=== PATIENT | female | born 1960 | race Caucasian/White ===

== ENCOUNTER 2019-10-23 12:48 | Emergency (ER) | payer MEDICARE, MEDICAID ==
[~2019-10-23] VITALS: Ht 177 cm; Wt 109.0 kg
[2019-10-23] MEDS ORDERED: FLUT1DIS26 (13:22)
--- NOTE | 2019-10-23 13:24 | ED Chest Pain ---
General Chief Complaint: Chest Wall Stated Complaint: FALL; SOB Nursing Triage Note: Patient fell on car and hit left side 4 days ago. States it hurts to breathe and is not being controlled by her pain medicine. Nursing Sepsis Screen: No Definite Risk History of Present Illness Date Seen by Provider: Oct 23, 2019 Time Seen by Provider: 12:40 Initial Comments Patient states she was walking in a parking lot yesterday, tripping and losing her balance and falling into the side of a car injuring her left side of her chest. Since then pain with moving her left arm, twisting and turning of her torso as well as taking a deep breath. Denies any bruising of the skin. Denies any fever or shortness of air at rest. No other injury or complaint. Allergies and Home Medications Allergies Coded Allergies: Sulfa (Sulfonamide Antibiotics) (Verified Allergy, Unknown, abdominal pain, 10/23/19) adhesive (Verified Allergy, Unknown, rash, 10/23/19) bupropion (Verified Allergy, Unknown, 10/23/19) butorphanol (Verified Allergy, Unknown, 10/23/19) cefuroxime (Verified Allergy, Unknown, abdominal pain , 10/23/19) cephalexin (Verified Allergy, Unknown, diarrhea, 10/23/19) clindamycin (Verified Allergy, Unknown, 10/23/19) diclofenac (Verified Allergy, Unknown, 10/23/19) escitalopram (Verified Allergy, Unknown, 10/23/19) estrogens, conjugated (Verified Allergy, Unknown, 10/23/19) ibuprofen (Verified Allergy, Unknown, 10/23/19) levofloxacin (Verified Allergy, Unknown, abdominal pain, 10/23/19) milnacipran (Verified Allergy, Unknown, 10/23/19) morphine (Verified Allergy, Unknown, itching, rash , 10/23/19) pramipexole (Verified Allergy, Unknown, abdominal pain , 10/23/19) pregabalin (Verified Allergy, Unknown, 10/23/19) simvastatin (Verified Allergy, Unknown, 10/23/19) sucralfate (Verified Allergy, Unknown, 10/23/19) venlafaxine (Verified Allergy, Unknown, 10/23/19) Home Medications Hydrocodone/Acetaminophen 1 Each Tablet, 1 EACH PO Q6H Prescribed by: STEPHANY DAMON on 10/23/19 1345 Patient Home Medication List Home Medication List Reviewed: Yes Review of Systems Review of Systems Constitutional: no symptoms reported Respiratory: See HPI; Denies Cough, Denies Orthopnea, Denies Shortness of Air, Denies SOA With Exertion, Denies SOA at Rest Cardiovascular: See HPI, Chest Pain (left lateral chest wall) Gastrointestinal: Denies Abdominal Pain, Denies Vomiting Musculoskeletal: No back pain, No joint pain Skin: No change in color, No lesions, No rash Psychiatric/Neurological: Denies Numbness, Denies Paresthesia Past Thbckgc-Iffipd-Svmoch Hx Past Med/Social Hx: Reviewed Nursing Past Med/Soc Hx Patient Social History Alcohol Use: Denies Use Recreational Drug Use: No Smoking Status: Never a Smoker 2nd Hand Smoke Exposure: No Recent Foreign Travel: No Contact w/Someone Who Travel: No Recent Infectious Disease Expo: No Recent Hopitalizations: No Seasonal Allergies Seasonal Allergies: No Past Medical History Surgeries: Yes (eye; knee) Gallbladder, Orthopedic, Tonsillectomy Respiratory: Yes Asthma Cardiac: No Neurological: No Genitourinary: No Gastrointestinal: No Musculoskeletal: No Endocrine: No HEENT: No Cancer: No Psychosocial: No Blood Disorders: No Adverse Reaction/Blood Tranf: No Physical Exam Vital Signs Vital Signs - First Documented 10/23/19 13:17 Temp 37.1 Pulse 87 Resp 16 B/P (MAP) 118/77 (91) Pulse Ox 98 Capillary Refill : Less Than 3 Seconds Height, Weight, BMI Height: '" Weight: lbs. oz. kg; 34.00 BMI Method: General Appearance: No Apparent Distress, WD/WN Respiratory: Chest Non Tender, Lungs Clear, Normal Breath Sounds, No Accessory Muscle Use, No Respiratory Distress, Other (generalized tenderness left lateral chest wall without localization of bony pain) Cardiovascular: Regular Rate, Rhythm, No Edema, No Gallop, No JVD, No Murmur, Normal Peripheral Pulses Gastrointestinal: Non Tender, Soft Extremity: Normal Capillary Refill, Normal Inspection Neurologic/Psychiatric: Alert, Oriented x3, No Motor/Sensory Deficits Skin: Normal Color, Warm/Dry; No Ecchymosis, No Rash Progress/Results/Core Measures Results/Orders My Orders Orders - ROVENSTINESTEPHANY DO Chest Pa/Lat (2 View) (10/23/19 12:49) Vital Signs/I&O 10/23/19 10/23/19 13:17 13:58 Temp 37.1 Pulse 87 81 Resp 16 18 B/P (MAP) 118/77 (91) 129/74 Pulse Ox 98 98 Blood Pressure Mean: 91 Diagnostic Imaging Comments Date of Exam:10/23/19 CHEST PA/LAT (2 VIEW) INDICATION: Fall and shortness of breath. TIME OF EXAM: 1:05 PM Correlation is made with prior chest from 02/20/2015. The heart size is stable. No parenchymal consolidation is seen. There are some mild interstitial prominence in lung bases. No effusion or pneumothorax is seen. IMPRESSION: Mild bibasilar interstitial prominence. Study is otherwise unremarkable. Dictated on workstation # [id number] Dict: 10/23/19 1313 Trans: 10/23/19 1325 CV [id number] Interpreted by: RAZIA PRATT MD Electronically signed by: Departure Impression Primary Impression: Rib pain Additional Impression: Contusion of chest wall Qualified Codes: S20.212A - Contusion of left front wall of thorax, initial encounter Disposition: HOME, SELF-CARE Condition: Stable Departure-Patient Inst. Decision time for Depature: 13:44 Referrals: CARLITOS ORTA DO (PCP/Family) Primary Care Physician Patient Instructions: Bruised Rib (DC) Scripts Hydrocodone/Acetaminophen (Hydrocodone-Acetamin 5-325 mg) 1 Each Tablet 1 EACH PO Q6H for Pain, #20 TAB Prov: STEPHANY DAMON DO 10/23/19 STEPHANY DAMON DO Oct 23, 2019 13:24
--- OUTSIDE RECORDS SUMMARY | 2019-10-23 13:39 | XMS REPORT | Clinical Summary ---
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 If you d o not see the information that you expected, contact Release of Information in [facility] Information Management department at [phone] for further assistan ce in locating additional records.[facility] Allergies Comments Active Allergy Reactions Severity Noted Date Adhesive Tape (Rosins) RASH 06/11/2010 Sucralfate NAUSEA AND 06/11/2010 VOMITING Cefuroxime Axetil NAUSEA AND 06/11/2010 VOMITING Diclofenac NAUSEA AND Low 12/30/2017 VOMITING Doxycycline STOMACH UPSET Low 12/30/2017 Venlafaxine FLATULENCE 06/11/2010 Ibuprofen NAUSEA AND 06/11/2010 VOMITING Escitalopram NAUSEA AND 06/11/2010 VOMITING Pramipexole HALLUCINATION 06/11/2010 S Prednisone NAUSEA AND 06/11/2010 VOMITING Quinine NAUSEA AND 06/11/2010 VOMITING Sulfa (Sulfonamide NAUSEA AND 04/17/2011 Antibiotics) VOMITING Ketorolac Tromethamine SWEATING 06/11/2010 shaking Bupropion Hcl SEE COMMENTS 06/11/2010 Medications End Date Status Medication Sig Dispensed Refills Start Date Active fluticasone/salmeterol Inhale 1 Puff 0 (ADVAIR) 250/50 mcg IN by mouth inhalation disk every [address]. [address] (CYMBALTA) Take 60 mg by 0 60 mg PO capsule mouth Daily. Active dicyclomine (BENTYL) 20 Take 20 mg by 0 mg PO tablet mouth four times daily as needed. Abdominal cramps Active hydrOXYzine (ATARAX) 25 Take 25-50 mg 0 mg PO tablet by mouth every 6 hours as needed. itching Active nystatin (MYCOSTATIN) Apply to 0 100,000 unit/g TP topical affected area cream Twice Daily. Active albuterol (VENTOLIN HFA, Inhale 2 0 PROAIR HFA) 90 Puffs by mcg/Actuation IN inhaler mouth every 4 hours as needed. Cough/wheezin g Active sertraline (ZOLOFT) 100 Take 150 mg 0 mg PO tablet by mouth daily. Active montelukast (SINGULAIR) Take 10 mg by 0 10 mg PO tablet mouth At Bedtime Daily. Active aspirin EC 81 mg PO Take 81 mg by 0 tablet mouth at bedtime daily. Active vitamins, multiple PO Cap Take 1 Cap by 0 mouth Daily. Active traMADol (ULTRAM) 50 mg Take 50-100 0 tablet mg by mouth every 6 hours as needed. Active cyclobenzaprine Take 10 mg by 0 (FLEXERIL) 10 mg tablet mouth four times daily as needed. Muscle spasms Active Sodium Chloride-Aloe Vera Insert into 0 (AYR SALINE GEL) Swab nose as directed. Use at night with oxygen Active ranitidine(+) (ZANTAC) Take 300 mg 0 300 mg tablet by mouth at bedtime daily. Active diclofenac(+) (VOLTAREN) Apply 2 g to 0 1 % Gel topical gel affected area twice daily. Active levothyroxine (SYNTHROID) Take 25 mcg 0 25 mcg tablet by mouth daily. Active oxybutynin XL (DITROPAN Take 10 mg by 0 XL) 10 mg tablet mouth at bedtime daily. Active estradiol (ESTRACE) 1 mg Take 1 mg by 0 tablet mouth daily. For 24 days followed by provera 5 mg tablet for 4 days Active promethazine/codeine Take 5-10 mL 0 (PHENERGAN W/CODEINE) by mouth 6.25/10 mg/5 mL oral every 4-6 syrup hours as needed. Active LORazepam (ATIVAN) 1 mg Take 1 mg by 0 tablet mouth every 4 hours as needed. Active DOCOSAHEXANOIC ACID/EPA Take 1,000 mg 0 (FISH OIL PO) by mouth at bedtime daily. Active albuterol-ipratropium Inhale 3 mL 0 (DUONEB) 0.5 mg-3 mg(2.5 solution as mg base)/3 mL nebulizer directed solution every 4 hours as needed. Cough/wheezin g Active Cyanocobalamin 50 mcg Tab Take 1 Tab by 0 mouth daily. Active Rrqnfapf-Kptef-Zlc Take 2 Tabs 0 149-Hyal Ac by mouth (GLUCOSAMINE-CHONDROITIN) daily. 750 mg-100 mg- 125 mg-1.65 mg Tab Active calcium carbonate-vitamin Take 1 Cap by 0 D3 600 mg(1,500mg) -100 mouth twice unit cap daily. Active fluticasone (FLONASE) 50 Apply 1 [place] 0 mcg/actuation nasal spray to each nostril as directed daily. Active docusate (COLACE) 100 mg Take 1 Cap by 60 Cap 0 capsule mouth twice 3 daily. Active polyethylene glycol 3350 Take 17 g by 0 12/18 (GLYCOLAX; MIRALAX) 17 mouth twice 3 gram/dose powder daily. Active senna (SENOKOT) 8.6 mg Take 2 Tabs 90 Tab 1 tablet by mouth 3 twice daily. Active Lactobacillus acidophilus Take by 0 (ACIDOPHILUS PO) mouth. Active Garlic 1,000 mg cap Take by 0 mouth. Active amoxicillin (AMOXIL) 875 Take 875 mg 0 mg tablet by mouth daily. Active Problems Problem Noted Date Hypothyroidism, unspecified 11/13/2014 Discoloration of skin of finger 10/08/2014 Fibromyalgia 10/08/2014 Fatigue 10/08/2014 JENNIFER (obstructive sleep apnea) 10/08/2014 Depression with anxiety 10/08/2014 Environmental allergies 10/08/2014 GERD (gastroesophageal reflux disease) 03/01/2012 IBS (irritable bowel syndrome) 03/01/2012 Family History Medical History Relation Name Comments Bipolar Disorder Brother Irritable Bowel Disease Brother Arthritis Father Irritable Bowel Disease Father Melanoma Father Cancer Maternal Grandfather Cancer Maternal Grandmother Cancer Sister pancreas Hypertension Sister Irritable Bowel Disease Sister Relation Name Status Comments Brother Father Maternal Grandfather Maternal Grandmother Sister Social History Date Tobacco Use Types Packs/Day Years Used Never Smoker Smokeless Tobacco: Never Used Drinks/Week oz/Week Comments Alcohol Use No Sex Assigned at Date Recorded Not on file Industry Job Start Date Occupation Not on file Not on file Not on file Travel End Travel History Travel Start No recent travel history available. Last Filed Vital Signs Reading Time Taken Comments Vital Sign 110/64 12/30/2017 1:23 PM CDT Blood Pressure 84 12/30/2017 1:23 PM CDT Pulse 36.8 C (98.3 F) 12/30/2017 1:23 PM CDT Temperature 19 11/13/2014 11:05 AM CDT Respiratory Rate 97% 12/18/2012 11:50 AM CDT Oxygen Saturation - - Inhaled Oxygen Concentration 95.3 kg (210 lb) 12/30/2017 1:23 PM CDT Weight 152.4 cm (5') 12/30/2017 1:23 PM CDT Height 41.01 12/30/2017 1:23 PM CDT Body Mass Index Plan of Treatment Health Maintenance Due Date Last Done Comments MEDICARE ANNUAL WELLNESS 1958 VISIT DTAP/TDAP VACCINES (1 - 1969 Tdap) HIV SCREENING 1973 PHYSICAL (COMPREHENSIVE) 1976 EXAM CERVICAL CANCER SCREENING 1979 BREAST CANCER SCREENING 1998 SHINGLES RECOMBINANT 2008 VACCINE (1 of 2) INFLUENZA VACCINE 02/23/2019 06/14/2006, 07/06/2005 COLORECTAL CANCER 04/17/2021 04/17/2011 SCREENING HEPATITIS C SCREENING Completed 12/30/2017, 03/23/2013 Results Not on filefrom Last 3 Months Insurance Type Payer Benefit Subscriber ID Effective Phone Address Plan / Dates Group Medicare MEDICARE MEDICARE xxxxxxxxxxx 2005-P PART A AND resent B Medicaid [place] [employer] xxxxxxxxxxx 2012- STATE [facility]/HO xxxxxxxxx 12/24/2017- P [place] HE[place]/SNF /FDC 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
--- OUTSIDE RECORDS SUMMARY | 2019-10-23 13:39 | XMS REPORT ---
Author Author [facility] Organization [facility] Address [address] [address] Care Team Providers Care Cancer Program Coordinator Name Role Phone Ross Silva Unavailable Unavailable Allergies No Information Medications No Information Problems No Information Procedures No Information Immunizations No Information Results No Information Vital Signs No Information Interventions No Information Plan of Treatment No Information Goals No Information Social History No Information Functional Status No Information Mental Status No Information Encounters Encounter Normalized Encounter Encounter Diagnosis Care Provi kelsie Organization Date Type 04-12-2019 Patient encounter no information no name (no phone) no organization name procedure (no phone) Medical Equipment No Information Payers No Information Additional Source Comments This clinical document has been generated using [employer] software that has been certified by the Office of the National Coordinator for Health Information Technology (ONC 15.99.04.3023.Diam.[id number]) and the National Committee for Senior Javascript Engineer (NCQA, as an eMeasure certified technology). FOR RECORDS PERTAINING TO PATIENTS WHO ARE OR HAVE BEEN ENROLLED IN A CHEMICAL D EPENDENCY/SUBSTANCE ABUSE PROGRAM, SOME INFORMATION MAY BE OMITTED. This clinica l summary was aggregated from multiple sources. Caution should be exercised in using it in the provision of clinical care. This summary normalizes information from multiple sources, and as a consequence, information in this document may ma terially change the coding, format and clinical context of patient data. In roscoe tion, data may be omitted in some cases. CLINICAL DECISIONS SHOULD BE BASED ON T HE PRIMARY CLINICAL RECORDS. [facility] provides no warranty or guara ntee of the accuracy or completeness of information in this document.The followi ng information is based on time limited clinical information
[2019-10-23] MEDS ORDERED: HYDR-83 PO (13:45)
[2019-10-23 13:58] VITALS: BP 129/74
== END 2019-10-23 14:00 | disposition home or self-care (01) ==
LOC: EDUNIT# 12:48 → ER FS 12:49
DX: S20.212A Contusion of left front wall of thorax, initial encounter (principal); W18.09XA Striking against other object with subsequent fall, initial encounter; Z88.2 Allergy status to sulfonamides; Z88.1 Allergy status to other antibiotic agents; Z88.8 Allergy status to other drugs, medicaments and biological substances; Y92.481 Parking lot as the place of occurrence of the external cause
CPT/HCPCS: 71046

== ENCOUNTER 2023-01-12 14:26 | Outpatient (CLI) | payer MEDICARE, MEDICAID ==
[~2023-01-12 14:26] MED LIST: ACHD5005 PO; FLUT1DIS26
== END 2023-01-12 14:45 ==
LOC: SLEEP 14:26
PROVIDERS: ATTEND Student in an Organized Health Care Education/Training Program
DX: G47.9 Sleep disorder, unspecified (principal)
CPT/HCPCS: G0399